=== PATIENT | male | born 1960 | race Caucasian/White ===

== ENCOUNTER 2020-09-19 12:01 | Inpatient (IN) ==
[2020-09-20] MEDS: Levalbuterol Neb 0.63 MG/3 ML IH SCH ×2 (17:00→21:37)
[2020-09-20] MEDS: *HR* LORazepam 1 MG TABLET PO PRN (21:41)
[2020-09-20] MEDS: *HR* OxyCODONE Immed Rel 5 MG TABLET PO PRN (21:41)
[2020-09-21] MEDS: hydrOXYzine pamoate 25 MG CAPSULE PO PRN (00:55)
[2020-09-21] MEDS: Levalbuterol Neb 0.63 MG/3 ML IH SCH ×4 (04:00→21:04)
[2020-09-21 04:47] LABS: Basophils % 0.4 %; Eosinophils # 0.3 K/mcL (0.0-0.6); Eosinophils % 6.3 %; Hematocrit 21.7 % (37.5-50.1); Hemoglobin 6.9 g/dL (12.9-16.9); Immature Granulocytes % 0.4 % (0-4); Lymphocytes % 22.7 %; Mean Corpuscular HGB Conc 31.8 g/dL (31.6-35.5); Mean Corpuscular Hemoglobin 31.2 pg (28.0-33.3); Mean Corpuscular Volume 98.2 fL (83.0-100.0); Mean Platelet Volume 10.4 fL (9.4-12.4); Monocytes # 0.4 K/mcL (0.0-1.3); Monocytes % 9.2 %; Neutrophils # 2.7 K/mcL (1.6-8.9); Platelet Count 167 K/mcL (140-400); Red Blood Count 2.21 M/mcL (4.19-5.50); White Blood Count 4.5 K/mcL (4.3-11.1)
[2020-09-21 04:58] LABS: BUN/Creatinine Ratio 26 (6-26); Blood Urea Nitrogen 35 mg/dL (6-20); Calcium 8.6 mg/dL (8.6-10.3); Carbon Dioxide 27 mEq/L (23-29); Chloride 104 mEq/L (98-107); Glucose 129 mg/dL (70-105); Osmolality,Calculated 296 (280-300); Potassium 4.4 mEq/L (3.5-5.1); Sodium 138 mEq/L (136-145); eGFR For African Americans > 60 (> 60); eGFR For Non-African Americans 54 (> 60)
[2020-09-21] MEDS: *HR* OxyCODONE Immed Rel 5 MG TABLET PO PRN ×2 (06:04→20:46)
[2020-09-21] MEDS: FLUoxetine 20 MG CAPSULE PO SCH (08:20)
[2020-09-21] MEDS: Aspirin 81 MG TAB.CHEW PO SCH (08:20)
[2020-09-21] MEDS: calcitrioL 0.25 MCG CAPSULE PO SCH (08:21)
[2020-09-21] MEDS: allopurinoL 100 MG TABLET PO SCH (08:21)
[2020-09-21] MEDS: Fluticasone Propionate Nasal 50 MCG/SPRAY BOTTLE NS SCH (08:27)
[2020-09-21] MEDS ORDERED: 0.9 % Sodium Chloride 250 ML ONE (16:53)
[2020-09-21] MEDS: *HR* LORazepam 1 MG TABLET PO PRN (20:45)
[2020-09-21] MEDS: Neosporin OINT 15 GM TUBE TP SCH (20:45)
[2020-09-22] MEDS: hydrOXYzine pamoate 25 MG CAPSULE PO PRN (01:41)
[2020-09-22] MEDS: Levalbuterol Neb 0.63 MG/3 ML IH SCH (04:10)
[2020-09-22 05:15] LABS: Hematocrit 26.1 % (37.5-50.1); Hemoglobin 8.3 g/dL (12.9-16.9)
[2020-09-22] MEDS: *HR* OxyCODONE Immed Rel 5 MG TABLET PO PRN ×3 (06:48→21:44)
[2020-09-22] MEDS: FLUoxetine 20 MG CAPSULE PO SCH (08:22)
[2020-09-22] MEDS: Aspirin 81 MG TAB.CHEW PO SCH (08:22)
[2020-09-22] MEDS: Fluticasone Propionate Nasal 50 MCG/SPRAY BOTTLE NS SCH (08:22)
[2020-09-22] MEDS: allopurinoL 100 MG TABLET PO SCH (08:22)
[2020-09-22] MEDS: calcitrioL 0.25 MCG CAPSULE PO SCH (08:22)
[2020-09-22] MEDS: Neosporin OINT 15 GM TUBE TP SCH ×2 (08:23→21:49)
[2020-09-22 08:36] LABS: % Iron Saturation 30 % (20-55); Iron 68 mcg/dL (65-175); Transferrin 160 mg/dL (203-362)
[2020-09-22 08:54] LABS: Folate 6.6 ng/mL (3.0-16.0)
[2020-09-23] MEDS: *HR* OxyCODONE Immed Rel 5 MG TABLET PO PRN ×3 (03:39→21:11)
[2020-09-23] MEDS: calcitrioL 0.25 MCG CAPSULE PO SCH (08:02)
[2020-09-23] MEDS: allopurinoL 100 MG TABLET PO SCH (08:02)
[2020-09-23] MEDS: FLUoxetine 20 MG CAPSULE PO SCH (08:02)
[2020-09-23] MEDS: Aspirin 81 MG TAB.CHEW PO SCH (08:02)
[2020-09-23] MEDS: Fluticasone Propionate Nasal 50 MCG/SPRAY BOTTLE NS SCH (08:03)
[2020-09-23] MEDS: Neosporin OINT 15 GM TUBE TP SCH ×2 (08:09→21:15)
[2020-09-23 13:11] LABS: Hematocrit 25.8 % (37.5-50.1); Hemoglobin 8.3 g/dL (12.9-16.9)
[2020-09-24] MEDS: hydrOXYzine pamoate 25 MG CAPSULE PO PRN ×2 (03:04→22:38)
[2020-09-24 05:32] LABS: Basophils % 0.2 %; Eosinophils # 0.3 K/mcL (0.0-0.6); Eosinophils % 6.7 %; Hematocrit 25.9 % (37.5-50.1); Immature Granulocytes % 0.4 % (0-4); Lymphocytes # 0.9 K/mcL (0.6-4.6); Lymphocytes % 18.8 %; Mean Corpuscular HGB Conc 30.9 g/dL (31.6-35.5); Mean Corpuscular Hemoglobin 30.5 pg (28.0-33.3); Mean Corpuscular Volume 98.9 fL (83.0-100.0); Mean Platelet Volume 10.3 fL (9.4-12.4); Monocytes # 0.4 K/mcL (0.0-1.3); Monocytes % 8.4 %; Platelet Count 209 K/mcL (140-400); Red Blood Count 2.62 M/mcL (4.19-5.50); Red Cell Distribution Width 16.1 % (11.5-14.5); Segmented Neutrophils % 65.5 %; White Blood Count 4.6 K/mcL (4.3-11.1)
[2020-09-24 05:50] LABS: BUN/Creatinine Ratio 30 (6-26); Blood Urea Nitrogen 40 mg/dL (6-20); Calcium 8.5 mg/dL (8.6-10.3); Chloride 106 mEq/L (98-107); Glucose 131 mg/dL (70-105); Osmolality,Calculated 298 (280-300); Potassium 4.1 mEq/L (3.5-5.1); Sodium 138 mEq/L (136-145); eGFR For African Americans > 60 (> 60); eGFR For Non-African Americans 55 (> 60)
[2020-09-24 06:14] LABS: Carbon Dioxide 26 mEq/L (23-29)
[2020-09-24] MEDS: Neosporin OINT 15 GM TUBE TP SCH ×2 (07:46→20:08)
[2020-09-24] MEDS: allopurinoL 100 MG TABLET PO SCH (07:46)
[2020-09-24] MEDS: Aspirin 81 MG TAB.CHEW PO SCH (07:46)
[2020-09-24] MEDS: calcitrioL 0.25 MCG CAPSULE PO SCH (07:46)
[2020-09-24] MEDS: FLUoxetine 20 MG CAPSULE PO SCH (07:46)
[2020-09-24] MEDS: Fluticasone Propionate Nasal 50 MCG/SPRAY BOTTLE NS SCH (07:49)
[2020-09-24] MEDS: *HR* OxyCODONE Immed Rel 5 MG TABLET PO PRN ×2 (13:58→20:08)
[2020-09-24] MEDS: *HR* LORazepam 1 MG TABLET PO PRN (20:08)
[2020-09-25] MEDS: *HR* OxyCODONE Immed Rel 5 MG TABLET PO PRN ×2 (05:02→19:56)
[2020-09-25 07:11] LABS: Phenytoin (Dilantin) Free 3.1 ug/mL (1.0-2.5)
[2020-09-25 07:23] LABS: Phenytoin Percent Free 14.5 % (8.0-14.0)
[2020-09-25] MEDS: FLUoxetine 20 MG CAPSULE PO SCH (09:09)
[2020-09-25] MEDS: calcitrioL 0.25 MCG CAPSULE PO SCH (09:09)
[2020-09-25] MEDS: allopurinoL 100 MG TABLET PO SCH (09:09)
[2020-09-25] MEDS: Aspirin 81 MG TAB.CHEW PO SCH (09:09)
[2020-09-25] MEDS: Fluticasone Propionate Nasal 50 MCG/SPRAY BOTTLE NS SCH (09:10)
[2020-09-25] MEDS: Neosporin OINT 15 GM TUBE TP SCH ×2 (09:11→19:55)
[2020-09-25] MEDS: *HR* LORazepam 1 MG TABLET PO PRN (19:56)
[2020-09-25] MEDS: hydrOXYzine pamoate 25 MG CAPSULE PO PRN (19:56)
[2020-09-26] MEDS: *HR* OxyCODONE Immed Rel 5 MG TABLET PO PRN (05:26)
[2020-09-26 05:49] LABS: Basophils % 0.2 %; Eosinophils # 0.3 K/mcL (0.0-0.6); Hematocrit 25.5 % (37.5-50.1); Immature Granulocytes % 0.6 % (0-4); Lymphocytes # 0.8 K/mcL (0.6-4.6); Lymphocytes % 15.7 %; Mean Corpuscular HGB Conc 31.4 g/dL (31.6-35.5); Mean Corpuscular Volume 98.8 fL (83.0-100.0); Mean Platelet Volume 10.6 fL (9.4-12.4); Monocytes # 0.5 K/mcL (0.0-1.3); Monocytes % 9.4 %; Neutrophils # 3.6 K/mcL (1.6-8.9); Platelet Count 193 K/mcL (140-400); Red Blood Count 2.58 M/mcL (4.19-5.50); Red Cell Distribution Width 16.4 % (11.5-14.5); Segmented Neutrophils % 69.1 %; White Blood Count 5.2 K/mcL (4.3-11.1)
[2020-09-26 06:01] LABS: BUN/Creatinine Ratio 31 (6-26); Blood Urea Nitrogen 38 mg/dL (6-20); Calcium 8.2 mg/dL (8.6-10.3); Carbon Dioxide 26 mEq/L (23-29); Chloride 108 mEq/L (98-107); Glucose 141 mg/dL (70-105); Osmolality,Calculated 301 (280-300); Potassium 4.4 mEq/L (3.5-5.1); Sodium 140 mEq/L (136-145); eGFR For African Americans > 60 (> 60); eGFR For Non-African Americans 60 (> 60)
[2020-09-26] MEDS: FLUoxetine 20 MG CAPSULE PO SCH (08:14)
[2020-09-26] MEDS: Fluticasone Propionate Nasal 50 MCG/SPRAY BOTTLE NS SCH (08:14)
[2020-09-26] MEDS: Aspirin 81 MG TAB.CHEW PO SCH (08:15)
[2020-09-26] MEDS: calcitrioL 0.25 MCG CAPSULE PO SCH (08:15)
[2020-09-26] MEDS: allopurinoL 100 MG TABLET PO SCH (08:15)
[2020-09-26] MEDS: Neosporin OINT 15 GM TUBE TP SCH ×2 (08:16→19:32)
[2020-09-26] MEDS ORDERED: Preparation H Ointment 57 GM TUBE RC PRN (09:37)
[2020-09-26] MEDS: Torsemide 20 MG TABLET PO SCH (12:18)
[2020-09-27] MEDS: hydrOXYzine pamoate 25 MG CAPSULE PO PRN (00:08)
[2020-09-27] MEDS: Aspirin 81 MG TAB.CHEW PO SCH (08:37)
[2020-09-27] MEDS: allopurinoL 100 MG TABLET PO SCH (08:37)
[2020-09-27] MEDS: Torsemide 20 MG TABLET PO SCH (08:37)
[2020-09-27] MEDS: calcitrioL 0.25 MCG CAPSULE PO SCH (08:37)
[2020-09-27] MEDS: FLUoxetine 20 MG CAPSULE PO SCH (08:37)
[2020-09-27] MEDS: Fluticasone Propionate Nasal 50 MCG/SPRAY BOTTLE NS SCH (08:40)
[2020-09-27] MEDS: Neosporin OINT 15 GM TUBE TP SCH ×2 (08:41→22:26)
[2020-09-27] MEDS: *HR* OxyCODONE Immed Rel 5 MG TABLET PO PRN (22:26)
[2020-09-28] MEDS: Aspirin 81 MG TAB.CHEW PO SCH (08:31)
[2020-09-28] MEDS: FLUoxetine 20 MG CAPSULE PO SCH (08:31)
[2020-09-28] MEDS: allopurinoL 100 MG TABLET PO SCH (08:31)
[2020-09-28] MEDS: calcitrioL 0.25 MCG CAPSULE PO SCH (08:31)
[2020-09-28] MEDS: Torsemide 20 MG TABLET PO SCH (08:31)
[2020-09-28] MEDS: Fluticasone Propionate Nasal 50 MCG/SPRAY BOTTLE NS SCH (08:31)
[2020-09-28] MEDS: Neosporin OINT 15 GM TUBE TP SCH ×2 (08:32→20:35)
[2020-09-28] MEDS: *HR* OxyCODONE Immed Rel 5 MG TABLET PO PRN ×2 (08:50→20:33)
[2020-09-28] MEDS: hydrOXYzine pamoate 25 MG CAPSULE PO PRN ×2 (08:50→17:10)
[2020-09-29 06:29] VITALS: BP 114/73
[2020-09-29] MEDS: Neosporin OINT 15 GM TUBE TP SCH (07:49)
[2020-09-29] MEDS: Torsemide 20 MG TABLET PO SCH (08:01)
[2020-09-29] MEDS: Aspirin 81 MG TAB.CHEW PO SCH (08:01)
[2020-09-29] MEDS: Fluticasone Propionate Nasal 50 MCG/SPRAY BOTTLE NS SCH (08:01)
[2020-09-29] MEDS: FLUoxetine 20 MG CAPSULE PO SCH (08:01)
[2020-09-29] MEDS: calcitrioL 0.25 MCG CAPSULE PO SCH (08:02)
[2020-09-29] MEDS: allopurinoL 100 MG TABLET PO SCH (08:02)
[2020-09-29] MEDS: *HR* OxyCODONE Immed Rel 5 MG TABLET PO PRN (08:11)
== END 2020-09-29 11:55 | disposition home health service (06) | DRG 945 ==
LOC: INPGRE 09-20 14:05
PROVIDERS: ADMIT Family Medicine; ATTEND Family Medicine